=== PATIENT | female | born 1945 | race Two or more races ===

== ENCOUNTER 2023-01-23 10:35 | Inpatient (IN) | payer OTHER ==
[~2023-01-23] VITALS: Ht 157.5 cm; Wt 68.0 kg
[~2023-01-23 10:35] MED LIST: CLONAZEPAM0.5 MG PO; FENOFIBRATE43 MG PO; LOSARTAN-HCTZ1 EACH PO; PROZAC20 MG PO; RISPERDAL0.5 MG PO; ZANTAC150 MG PO; ZOCOR20 MG PO
[2023-01-24] MEDS ORDERED: METFORMIN HCL500 M3 PO (11:31)
[2023-01-24] MEDS ORDERED: ABILIFY10 MG PO (11:31)
[2023-01-24] MEDS ORDERED: PROTONIX40 MG PO (11:31)
[2023-01-24] MEDS ORDERED: IMODIUM A-D2 MG PO (11:32)
[2023-01-29] MEDS ORDERED: FENOFIBRATE160 MG (08:08)
[2023-01-31] MEDS ORDERED: ELIQUIS2.5 MG PO (15:30)
[2023-01-31] MEDS ORDERED: DUI500 PO (15:30)
[2023-01-31] MEDS ORDERED: PERCOCET 10-321 EACH PO (15:30)
== END 2023-01-31 18:04 | DRG 470 ==
LOC: O/R 01-29 06:27 → SURG 01-29 07:00 → SURH 01-29 10:06
PROVIDERS: ADMIT Orthopaedic Surgery; ATTEND Orthopaedic Surgery
PROC: 0MNN0ZZ Release Right Knee Bursa and Ligament, Open Approach (ICD-10-PCS; 2023-01-29)
PROC: 0SRC0J9 Replacement of Right Knee Joint with Synthetic Substitute, Cemented, Open Approach (ICD-10-PCS; principal; 2023-01-29 07:00)
DX: M17.11 Unilateral primary osteoarthritis, right knee (principal); D62 Acute posthemorrhagic anemia; M22.11 Recurrent subluxation of patella, right knee; I10 Essential (primary) hypertension; E11.9 Type 2 diabetes mellitus without complications; Z79.4 Long term (current) use of insulin